=== PATIENT | female | born 1965 | race Caucasian/White ===

== ENCOUNTER 2016-10-23 22:58 | Emergency (ER) | payer MEDICARE, MEDICAID ==
--- NOTE | 2016-10-23 23:09 | ER Document Report ---
ED General - General Stated Complaint: UNRESPONSIVE Mode of Arrival: Medic Information source: Emergency Med Personnel Cannot obtain history due to: Intubated Notes: This is a 51-year-old female who arrives to the emergency department intubated. History is per EMS. They report that she has recently been treated for bronchitis and has been on antibiotics. They were called for respiratory distress. When they arrived the patient was unresponsive with room air sats in the 30s and 40s. They attempted to bag her but were unable to increase her oxygenation and she was intubated in the field. She received 2 mg of Narcan with no response. She was RSI with etomidate and succinylcholine. EMS states that it took 3 attempts to get a successful intubation. Immediately after intubation the patient did bradycardia down to the 30s and then to asystole for a brief amount of time CPR was initiated but before the completion of one round of the patient had return of spontaneous circulation. EMS reports the family states that a similar event happened a few months ago and at which time the patient was also intubated for a brief amount of time. There is no other medical history available at this time. Past Medical History - General Information source: Relative, [facility] Records - Social History Smoking Status: Unknown if Ever Smoked Family History: Other - unknown - Past Medical History Cardiac Medical History: Reports: Hx Congestive Heart Failure, Hx Hypertension Pulmonary Medical History: Reports: Hx Pneumonia Malignancy Medical History: Reports: Hx Leukemia - CML Psychiatric Medical History: Reports: Hx Anxiety, Hx Depression Past Surgical History: Reports: Hx Abdominal Surgery, Hx Cholecystectomy, Hx Hysterectomy, Hx Pacemaker Review of Systems - Review of Systems -: Yes ROS unobtainable due to patient's medical condition Physical Exam - Vital signs Vitals: Resp Pulse Ox 16 98 10/23/16 23:15 10/23/16 23:15 - Notes Notes: PHYSICAL EXAMINATION: GENERAL: ill appearing, on ventilator, unresponsive to painful stimuli HEAD: Atraumatic, normocephalic. EYES: Pupils equal, minimally reactive, conjunctiva are normal. ENT: intubated NECK: without lymphadenopathy LUNGS: Breath sounds clear to auscultation bilaterally anteriorly on vent. No wheezes rales or rhonchi. HEART: Regular rate and rhythm without murmurs ABDOMEN: Soft, normoactive bowel sounds. No masses appreciated. EXTREMITIES: No edema or sign of trauma NEUROLOGICAL: unresponsive on vent SKIN: cool, pale, no rashes or lesions noted. Course - Re-evaluation Re-evalutation: 10/23/16 23:07 Patient arrives intubated after an episode of respiratory failure at home. We will initiate septic workup. Also in the differential is tox and/or overdose, as well as cardiac event. We'll also obtain a head CT. 10/23/16 23:18 Portal chest x-ray demonstrates large infiltrate on the left. At this time still do not have the name and the patient or any information about her past medical history or allergies. This is being remedied now and I will hold off for now on antibiotics until I obtain that allergy information was long as that is obtained shortly. 10/23/16 23:23 Family was contacted and the patient is allergic to penicillin and Percocet. IV antibiotics are initiated for the pneumonia. 10/24/16 00:36 Aspirin level is significantly elevated at 45. Home medication list was reviewed and did not reveal any aspirin or aspirin complaining medications. Patient is significantly acidotic at this time we'll initiate bicarbonate therapy. Discussed with who will admit the patient to the ICU. 10/24/16 03:04 Patient continued to drop her blood pressures despite IV fluid resuscitation. A right femoral central line was placed and patient was started on Levaphed. I discussed the case with [facility] who agreed with the bicarbonate drip and also recommended potassium supplementation. At this point is very possible that the patient would be a candidate for emergent dialysis. The Poison Control Center is going to consult with their transit man and call me back regarding this recommendation. 10/24/16 03:44 Poison control did call back and recommended dialysis. I have paged the kineseologist and am awaiting a call back. At this point I feel that the patient would get dialysis sooner by staying at this facility as other facilities have been full and transferred times have been high. However I will discuss this with the kineseologist when he calls back. 10/24/16 04:[address] Perrin. At this time with the patient's blood pressure being 104 systolic on the levaphed, Dr. Perrin recommends transfer if possible to a facility that that could do CRRP. I discussed the case with [facility] and am awaiting callback 10/24/16 04:35 I discussed the case with the chemical etching processor at [facility] who accepts transfer the patient to the ICU there. At this point it is hopeful that a bed will become available in the next hour. 10/24/16 05:00 Repeat ABG shows improvement with pH of 7.28. Transport to [facility] expected within the hour. 10/24/16 05:08 10/24/16 07:10 Transport team here to transport patient to [facility]. Patient is now intermittently opening her eyes. She was given 1 dose of fentanyl. She is requiring Levophed and dopamine to maintain her blood pressure. She is transferred to [facility] for CRRP - Vital Signs Vital signs: Temp Pulse Resp BP Pulse Ox 99.2 F 24 H 95/62 L 99 10/24/16 06:36 10/24/16 06:36 10/24/16 06:36 10/24/16 06:36 - Laboratory Result Diagrams: 10/23/16 23:05 10/23/16 23:05 Laboratory results interpreted by me: 10/23/16 10/23/16 10/23/16 23:05 23:05 23:05 WBC 12.0 H RBC 3.02 L Hgb 9.9 L Hct 30.0 L MCV 100 H RDW 15.6 H Seg Neuts % (Manual) 92 H Band Neutrophils % 1 L Lymphocytes % (Manual) 4 L Abs Neuts (Manual) 11.2 H PT 22.2 H Carbonic Acid ABG pH ABG pCO2 ABG pO2 ABG O2 Saturation BUN 23 H Est GFR (Non-Af Amer) 51 L Glucose 252 H Calcium 8.2 L Magnesium 2.4 H AST 56 H Total Protein 6.0 L Urine Protein Urine Blood Salicylates 45.0 H* Acetaminophen < 10 L 10/23/16 10/23/16 10/24/16 23:05 23:45 00:55 WBC RBC Hgb Hct MCV RDW Seg Neuts % (Manual) Band Neutrophils % Lymphocytes % (Manual) Abs Neuts (Manual) PT Carbonic Acid 1.75 H ABG pH 7.17 L* ABG pCO2 58.1 H ABG pO2 103.7 H ABG O2 Saturation BUN Est GFR (Non-Af Amer) Glucose Calcium Magnesium AST Total Protein Urine Protein 100 H Urine Blood SMALL H Salicylates 41.8 H* Acetaminophen 10/24/16 10/24/16 10/24/16 01:10 03:45 06:45 WBC RBC Hgb Hct MCV RDW Seg Neuts % (Manual) Band Neutrophils % Lymphocytes % (Manual) Abs Neuts (Manual) PT Carbonic Acid 1.98 H 1.38 H ABG pH 7.11 L* 7.28 L ABG pCO2 65.9 H 46.0 H ABG pO2 114.1 H 126.9 H ABG O2 Saturation 93.5 L 98.4 H BUN Est GFR (Non-Af Amer) Glucose Calcium Magnesium AST Total Protein Urine Protein Urine Blood Salicylates Acetaminophen - EKG Interpretation by Ar Rate: Tachycardia Rhythm: NSR When compared to previous EKG there are: Previous EKG unavailable Procedures - Central Line right femoral Consent obtained: No - emergent, family not available Central line pre-insertion: Sterile PPE donned, Chloraprep applied, Sterile drapes applied Central line size (Fr.): 7 Central line lumen type: Triple mL's of anesthesia: 0 Ultrasound guided: No Line secured with sutures: Yes Central line post-insertion: Blood return from lumens, Biopatch applied, Sutured , Sterile dressing applied Number of attempts: 3 Complications: Yes - vein cannulated 3 times, but unable to thread guidewire until 3rd attempt. Critical Care Note - Critical Care Note Total time excluding time spent on procedures (mins): 90 - minutes of critical care time spent in direct contact evaluating and reevaluating the patient, treating symptoms, reviewing labs and studies and speaking with family and consultants excluding any procedures Discharge - Discharge Clinical Impression: Septic shock Pneumonia Qualifiers: Pneumonia type: due to unspecified organism Laterality: bilateral Lung location : unspecified part of lung Qualified Code(s): J18.9 - Pneumonia, unspecified organism Aspirin toxicity Qualifiers: Encounter type: initial encounter Injury intent: undetermined intent Qualified Code(s): T39.014A - Poisoning by aspirin, undetermined, initial encounter Condition: Critical Disposition: [facility] Referrals: LAUREANO POWERS MD [Primary Care Provider] - Follow up as needed
[2016-10-23] MEDS ORDERED: CEFEPIME 2 GM/D5W RTU 50 ML IV ONE (23:22)
[2016-10-23] MEDS ORDERED: VANCOMYCIN HCL INJ 1000 MG VIAL IV ONE (23:22)
[2016-10-23 23:28] LABS: ARTERIAL BLOOD BASE EXCESS -7.7 mmol/L; ARTERIAL BLOOD O2 SATURATION 96.2 % (94-98)
[2016-10-23 23:33] LABS: PROTHROMBIN TIME 22.2 SEC (11.4-15.4)
[2016-10-23 23:47] LABS: ALANINE AMINOTRANSFERASE 32 U/L (9-52); ALBUMIN 3.5 g/dL (3.5-5.0); ALKALINE PHOSPHATASE 100 U/L (38-126); ANION GAP 16 (5-19); ASPARTATE AMINO TRANSFERASE 56 U/L (14-36); BILIRUBIN,TOTAL 0.5 mg/dL (0.2-1.3); BLOOD UREA NITROGEN 23 mg/dL (7-20); CALCIUM 8.2 mg/dL (8.4-10.2); CARBON DIOXIDE 23 mmol/L (22-30); CHLORIDE 104 mmol/L (98-107); CREATININE RESULT 1.11 mg/dL (0.52-1.25); GLUCOSE 252 mg/dL (75-110); MAGNESIUM 2.4 mg/dL (1.6-2.3); POTASSIUM 3.6 mmol/L (3.6-5.0); SODIUM 142.6 mmol/L (137-145)
[2016-10-23 23:48] LABS: ALCOHOL < 10 mg/dL (NONE DETECTED)
[2016-10-23 23:54] LABS: HEMOGLOBIN 9.9 g/dL (12.0-15.5); HGB HCT DIFFERENCE -0.3; MEAN CORPUSCULAR HEMOGLOBIN 32.8 pg (27.0-33.4); MEAN CORPUSCULAR VOLUME 100 fl (80-97); RED BLOOD COUNT 3.02 10^6/uL (3.72-5.28); RED CELL DISTRIBUTION WIDTH 15.6 % (11.5-14.0)
[2016-10-23 23:58] LABS: ANISOCYTOSIS SLIGHT; BAND NEUTROPHILS % (MANUAL) 1 % (3-5); BASOPHILS % (MANUAL) 0 % (0-2); EOSINOPHILS % (MANUAL) 0 % (0-6); LYMPHOCYTES % (MANUAL) 4 % (13-45); OVALOCYTES SLIGHT; POIKILOCYTOSIS SLIGHT; SCHISTOCYTES SLIGHT; TOTAL CELLS COUNTED 100; TOXIC GRANULATION SLIGHT
[2016-10-24] MEDS: NORMAL SALINE 1000 ML 1,000 ML IV PRN ×2 (00:01→05:33)
[2016-10-24 00:08] LABS: APPEARANCE,URINE SLIGHTLY-CLOUDY; BILIRUBIN,URINE NEGATIVE (NEGATIVE); GLUCOSE, URINE NEGATIVE (NEGATIVE); KETONES,URINE NEGATIVE (NEGATIVE); LEUKOCYTE ESTERASE,URINE NEGATIVE (NEGATIVE); NITRITE,URINE NEGATIVE (NEGATIVE); PROTEIN,URINE 100 mg/dL (NEGATIVE); URINE SPECIFIC GRAVITY 1.014; UROBILINOGEN,URINE NEGATIVE mg/dL (<2.0)
[2016-10-24 00:16] LABS: URINE BARBITURATES SCREEN NEGATIVE; URINE METHADONE SCREEN NEGATIVE; URINE OPIATES LOW NEGATIVE; URINE PHENCYCLIDINE SCREEN NEGATIVE
[2016-10-24] MEDS ORDERED: LEVOFLOXACIN 750 MG/D5W RTU 150 ML IV ONE (00:26)
[2016-10-24] MEDS ORDERED: SODIUM BICARBONATE 8.4% INJ 50 MEQ/50 ML DISP.SYRIN IV ONE (00:33)
[2016-10-24] MEDS ORDERED: DEXTROSE 5%-WATER 1000 ML 1,000 ML with SODIUM BICARBONATE 100 MEQ IV PRN ×2 (00:35)
[2016-10-24 01:20] LABS: ARTERIAL BLOOD BASE EXCESS -9.7 mmol/L; ARTERIAL BLOOD O2 SATURATION 93.5 % (94-98)
[2016-10-24] MEDS ORDERED: NOREPINEPHRINE BITARTRATE INJ/PF 4 MG/4 ML SDV IV ONE ×2 (02:20→07:06)
[2016-10-24] MEDS ORDERED: DEXTROSE 5%-WATER 250 ML with NOREPINEPHRINE BITARTRATE 4 MG IV PRN ×2 (02:32)
[2016-10-24] MEDS ORDERED: DEXTROSE 5%-WATER 1000 ML 1,000 ML with SODIUM BICARBONATE 150 MEQ IV PRN ×2 (02:55)
[2016-10-24] MEDS ORDERED: SODIUM BICARBONATE 8.4% INJ 50 MEQ/50 ML DISP.SYRIN ONE (03:08)
[2016-10-24] MEDS: POTASSI CL 20 MEQ/50 ML RIDER 50 ML IV SCH ×2 (03:10→05:02)
[2016-10-24 04:12] LABS: ARTERIAL BLOOD BASE EXCESS -5.2 mmol/L; ARTERIAL BLOOD O2 SATURATION 97.7 % (94-98)
[2016-10-24] MEDS ORDERED: DOPAMINE HCL/DEXTROSE 5%-WATER 250 ML IV PRN (06:18)
[2016-10-24] MEDS ORDERED: IPRATROPIUM/ALBUTEROL 0.5-2.5 MG/3 ML AMPUL NEB ONE (06:26)
[2016-10-24] MEDS ORDERED: FENTANYL CITRATE INJ/PF 100 MCG/2 ML AMPUL IV ONE (06:51)
[2016-10-24 07:02] LABS: ARTERIAL BLOOD BASE EXCESS -3.1 mmol/L; ARTERIAL BLOOD O2 SATURATION 98.4 % (94-98)
[2016-10-24 07:31] VITALS: BP 84/48
--- NOTE | 2016-10-24 07:57 | EKG REPORT ---
SEVERITY:- BORDERLINE ECG - SINUS TACHYCARDIA PROBABLE LEFT ATRIAL ABNORMALITY BORDERLINE PROLONGED QT INTERVAL : Confirmed by: Scott Georges MD 24-Oct-2016 07:56:45
== END 2016-10-24 07:10 | disposition short-term general hospital (02) ==
LOC: ER 22:58 → EDBD 22:58 → ER 10-24 07:10
PROC: 06HM33Z Insertion of Infusion Device into Right Femoral Vein, Percutaneous Approach (ICD-10-PCS; principal; 2016-10-23)
DX: A41.9 Sepsis, unspecified organism (principal); J96.00 Acute respiratory failure, unspecified whether with hypoxia or hypercapnia; R65.21 Severe sepsis with septic shock; J18.9 Pneumonia, unspecified organism; T39.014A Poisoning by aspirin, undetermined, initial encounter; R00.0 Tachycardia, unspecified; I50.9 Heart failure, unspecified; I11.0 Hypertensive heart disease with heart failure; Z88.0 Allergy status to penicillin; Z88.6 Allergy status to analgesic agent; Z90.49 Acquired absence of other specified parts of digestive tract; Z90.710 Acquired absence of both cervix and uterus; Z85.6 Personal history of leukemia
CPT/HCPCS: 36556; 93005; 99291; 99292; 51702; 96365; 96366; 96367; 96368; 36415; 87040; 87086; 80307 ×4; 82803 ×2; 83735; 85025; 85610; 80053; 81001; 83605; 71010; 93010; 94002; 94003; C1751; J1265; J3010; J3490; J3480; J7060; J7030; J3370; J1956; J0692

== ENCOUNTER 2018-03-23 17:33 | Emergency (ER) | payer MEDICARE, MEDICAID ==
--- NOTE | 2018-03-23 18:02 | ER Document Report ---
HPI - HPI Patient complains to provider of: right foot pain Onset: Other - Quality of pain: Achy Severity: Severe Pain Level: 5 Context: Patient presents emergency department with complaints of right foot pain. Patient denies trauma. Daughter at bedside reports patient gets up and walks around in the middle the night and could have hurt it. Patient reports it was sore yesterday but pain has increased today. Taking Motrin and Tylenol for pain without relief of symptoms. Patient has fractured this foot in the past. Associated Symptoms: None Exacerbated by: Movement, Walking Relieved by: Denies Similar symptoms previously: No Recently seen / treated by doctor: No Past Medical History - General Information source: Patient - Social History Smoking Status: Current Every Day Smoker Cigarette use (# per day): Yes Frequency of alcohol use: None Drug Abuse: None Lives with: Family Family History: Other - unknown Patient has suicidal ideation: No Patient has homicidal ideation: No - Past Medical History Cardiac Medical History: Reports: Hx Congestive Heart Failure, Hx Hypertension Pulmonary Medical History: Reports: Hx Pneumonia, Hx Intubation Neurological Medical History: Reports: Hx Seizures Endocrine Medical History: Reports: Hx Hypothyroidism Renal/ Medical History: Denies: Hx Peritoneal Dialysis Malignancy Medical History: Reports: Hx Leukemia - CML GI Medical History: Reports: Hx Diverticulitis Musculoskeletal Medical History: Reports Other - nerve damage (neck) Psychiatric Medical History: Reports: Hx Anxiety, Hx Depression, Hx Post Traumatic Stress Disorder Past Surgical History: Reports: Hx Abdominal Surgery, Hx Cholecystectomy, Hx Hysterectomy, Hx Pacemaker Vertical Provider Document - CONSTITUTIONAL Agree With Documented VS: Yes Exam Limitations: No Limitations General Appearance: WD/WN, Mild Distress - anxious - INFECTION CONTROL TRAVEL OUTSIDE OF THE [place] IN LAST 30 DAYS: No - HEENT HEENT: Atraumatic, Normocephalic - NECK Neck: Supple - RESPIRATORY Respiratory: No Respiratory Distress - MUSCULOSKELETAL/EXTREMETIES Musculoskeletal/Extremeties: MAEW, FROM, Tender - right lateral/medial foot ttp , no obvious deformity, + pedal pulse, + cap refill, Slight erythema medially, no warmth - NEURO Level of Consciousness: Awake, Alert, Appropriate Motor/Sensory: No Motor Deficit - DERM Integumentary: Warm, Dry Adult Front & Back Diagram: 1 - c/o pain, worse lateral/medial Course - Re-evaluation Re-evalutation: 03/23/18 19:15 Patient and daughter instructed on negative x-ray. Patient instructed on Jm wrap and crutches for comfort. She was also instructed to follow-up with her primary care provider Sunday for recheck. - Diagnostic Test Radiology reviewed: Image reviewed, Reports reviewed - EXAM DESCRIPTION: FOOT RIGHT COMPLETE COMPLETED DATE/TIME: 03/23/2018 6:37 pm REASON FOR STUDY: pain COMPARISON: None. NUMBER OF VIEWS: Three views. TECHNIQUE: AP, lateral and oblique radiographic images acquired of the right foot. LIMITATIONS: None. FINDINGS: MINERALIZATION: Normal. BONES: No acute fracture or dislocation. No worrisome bone lesions. JOINTS: No effusions. SOFT TISSUES: No soft tissue swelling. No foreign body. OTHER: No other significant finding. IMPRESSION: NO RADIOGRAPHIC EVIDENCE OF ACUTE INJURY. Procedures - Immobilization Left Foot Pre-Proc Neuro Vasc Exam: Normal Immobilizer type: Jm wrap Performed by: PCT Post-Proc Neuro Vasc Exam: Unchanged from pre-exam Alignment checked and good: Yes Discharge - Discharge Clinical Impression: Foot pain, right Condition: Stable Disposition: HOME, SELF-CARE Instructions: Jm Wrap ([facility]), Use of Crutches ([facility]), Use of Pboy-Loc-Bfdygoy Ibuprofen ([facility]), Ice & Elevation ([facility]) Additional Instructions: *You have been evaluated for right foot pain *Rest/Ice/Elevate your foot *Maintain the jm wrap and use the crutches for comfort *Follow up with your primary care provider Sunday for recheck *Take ibuprofen as indicated *Return to ED for worsening condition, changes, needs, concerns Referrals: LAUREANO POWERS MD [Primary Care Provider] - Follow up in 3-5 days
--- NOTE | 2018-03-23 19:00 | RADIOLOGY REPORT (SQ) ---
EXAM DESCRIPTION: FOOT RIGHT COMPLETE COMPLETED DATE/TIME: 03/23/2018 6:37 pm REASON FOR STUDY: pain COMPARISON: None. NUMBER OF VIEWS: Three views. TECHNIQUE: AP, lateral and oblique radiographic images acquired of the right foot. LIMITATIONS: None. FINDINGS: MINERALIZATION: Normal. BONES: No acute fracture or dislocation. No worrisome bone lesions. JOINTS: No effusions. SOFT TISSUES: No soft tissue swelling. No foreign body. OTHER: No other significant finding. IMPRESSION: NO RADIOGRAPHIC EVIDENCE OF ACUTE INJURY. TECHNICAL DOCUMENTATION: JOB ID: [id number] [place]-[id number] 2010 [email or web address]- All Rights Reserved Reading location - IP/workstation name: [email or web address]
== END 2018-03-23 19:27 | disposition home or self-care (01) ==
LOC: ER 17:33
DX: M79.671 Pain in right foot (principal); L53.9 Erythematous condition, unspecified; F17.210 Nicotine dependence, cigarettes, uncomplicated; Z85.6 Personal history of leukemia
CPT/HCPCS: 99283